=== PATIENT | male | born 1965 | race Caucasian/White ===

== ENCOUNTER 2018-06-07 10:22 | Day surgery (SDC) | payer OTHER ==
[~2018-06-07] VITALS: Ht 177.8 cm; Wt 100.4 kg
--- NOTE | 2018-06-07 13:18 | NUR ---
06/07/18 1318 Marcela Kearney PATIENT STATES HIS RIDE WILL BE COMING AT 1600
== END 2018-06-07 13:43 | disposition home or self-care (01) ==
LOC: ORSCSDS 10:22
PROVIDERS: Surgery
PROC: 0JB40ZZ Excision of Right Neck Subcutaneous Tissue and Fascia, Open Approach (ICD-10-PCS; principal; 2018-06-07 11:30)
DX: D17.9 Benign lipomatous neoplasm, unspecified (principal)
CPT/HCPCS: 88304; J0690; J2250; J2704; J3010; J7120

== ENCOUNTER 2018-06-18 09:52 | Day surgery (SDC) | payer OTHER ==
[~2018-06-18] VITALS: Ht 177.8 cm; Wt 98.7 kg
--- NOTE | 2018-06-18 12:36 | NUR ---
06/18/18 1237 Brandy Kumar SMALL IRRITATION/INFLAMMATION OF SKIN WHERE EKG LEADS WERE PLACED. PT DENIES PAIN/IRRITATION, DENIES CONCERN.
--- NOTE | 2018-06-18 12:43 | NUR ---
06/18/18 1243 Brandy KumarGisela TOWARDS END OF PROCEDURE, PT BEGAN RETCHING, SUCTIONED ORALLY FOR SMALL AMOUNT OF CLEAR SECRETIONS. WHEN PT AWOKE, PT DENIED SORE THROAT, JAW DISCORMFORT OR NAUSEA.
== END 2018-06-18 12:34 | disposition home or self-care (01) ==
LOC: ORSCSDS 09:52
PROVIDERS: Surgery
PROC: 0DBK8ZX Excision of Ascending Colon, Via Natural or Artificial Opening Endoscopic, Diagnostic (ICD-10-PCS; principal; 2018-06-18 11:30)
PROC: 0DBM8ZX Excision of Descending Colon, Via Natural or Artificial Opening Endoscopic, Diagnostic (ICD-10-PCS; principal; 2018-06-18 11:30)
DX: Z12.11 Encounter for screening for malignant neoplasm of colon (principal); D12.4 Benign neoplasm of descending colon; D12.2 Benign neoplasm of ascending colon; E66.01 Morbid (severe) obesity due to excess calories; Z68.36 Body mass index [BMI] 36.0-36.9, adult
CPT/HCPCS: 88305; J2704; J7120